=== PATIENT | male | born 1990 | race Caucasian/White ===

== ENCOUNTER 2018-10-03 00:04 | Emergency (ER) | payer BC ==
[~2018-10-03] VITALS: Ht 180.3 cm; Wt 99.8 kg
[2018-10-03] MEDS ORDERED: BENADRYL25 MG PO (00:51)
[2018-10-03] MEDS ORDERED: PEPCID20 MG PO (01:10)
[2018-10-03] MEDS ORDERED: PREDNISONE 20 M20 MG PO (01:10)
[2018-10-03 01:56] VITALS: BP 137/80
== END 2018-10-03 01:57 | disposition home or self-care (01) ==
LOC: ER 00:04
DX: L50.9 Urticaria, unspecified (principal); L55.9 Sunburn, unspecified; F17.210 Nicotine dependence, cigarettes, uncomplicated